=== PATIENT | male | born 1990 | race Caucasian/White ===

== ENCOUNTER 2017-08-12 13:24 | Emergency (ER) | payer OTHER ==
[~2017-08-12] VITALS: Ht 180.3 cm; Wt 70.3 kg
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
[~2017-08-12 13:24] MED LIST: ALBUTEROL17 GM INH; BACTRIM DS TABL1 TA1 PO; BACTRIM DS TABL1 TAB PO; BACTROBAN15 GM TOP; BENTYL10 M1; CIPRO; FLEXERIL10 MG PO; IBUPROFEN PO; LORTAB 5/500 TA1 TA1 PO; NO MEDICATIONS; PHENERGAN DM1 ML PO; PHENERGAN25 M1; PREDNISONE PO; VOLTAREN50 MG PO; ZITHROMAX PO; [UNRECOGNIZED DRUG - REMARK]
== END 2017-08-12 14:30 | disposition home or self-care (01) ==
LOC: SED 13:24
DX: S16.1XXA Strain of muscle, fascia and tendon at neck level, initial encounter (principal); Z87.891 Personal history of nicotine dependence; V79.9XXA Bus occupant (driver) (passenger) injured in unspecified traffic accident, initial encounter
CPT/HCPCS: 71010; 72040; 99284